=== PATIENT | male | born 1990 | race Two or more races ===

== ENCOUNTER 2017-06-17 11:33 | Outpatient (CLI) | payer OTHER | END 2017-06-17 11:40 | disposition home or self-care (01) | LOC: LAB 11:33 | DX: N39.0 Urinary tract infection, site not specified (principal); N40.0 Benign prostatic hyperplasia without lower urinary tract symptoms; E03.9 Hypothyroidism, unspecified; E78.5 Hyperlipidemia, unspecified ==

== ENCOUNTER 2023-04-04 11:26 | Emergency (ER) | payer OTHER ==
[~2023-04-04] VITALS: Ht 182.9 cm; Wt 102.1 kg
[2023-04-04 12:49] LABS: HEMOGLOBIN 14.2 g/dL (13-16.00); MEAN CELL VOLUME 92.1 fL (80.0-100.00); MEAN CORPUSCULAR HEMOGLOBIN 31.2 pg (27.00-32.0); MEAN CORPUSCULAR HGB CONC 33.9 g/dl (32.0-36.0); PLATELET COUNT 240 K/uL (150-450); RED BLOOD COUNT 4.56 M/uL (4.00-6.00); RED CELL DISTRIBUTION WIDTH 13.4 % (11.5-14.5)
[2023-04-04 13:29] LABS: CALCIUM 9.3 mg/dL (8.5-10.1); CREATININE SERUM 0.97 mg/dL (0.70-1.30); GFR 88.59; POTASSIUM 4.41 mEq/L (3.5-5.1)
[2023-04-04 14:40] LABS: PH,URINE 6.5 (5.0-8.0); URINE APPEARANCE Clear; URINE BILIRRUBIN Negative (NEGATIVE); URINE BLOOD Negative; URINE COLOR Yellow; URINE GLUCOSE Negative (NEGATIVE); URINE LEUKOCYTE Negative; URINE NITRATE Negative; URINE PROTEIN Negative (NEGATIVE); URINE UROBILINOGEN 0.2 E.U./dl
[2023-04-04 14:42] LABS: URINE BACTERIA 13.8 uL (0.0-1933); URINE RBC 2.2 uL (0.0-20.8)
[2023-04-04 14:55] LABS: URINE EPITHELIAL CELLS 0.3 uL (0.0-38.8); URINE WBC 0.7 uL (0.0-23.2)
[2023-04-04] MEDS ORDERED: ZOFRAN8 MG PO (17:41)
[2023-04-04] MEDS ORDERED: PEPCID AC20 MG PO (17:41)
== END 2023-04-04 19:49 | disposition home or self-care (01) ==
LOC: ER 11:27
PROVIDERS: Emergency Medicine
DX: K52.89 Other specified noninfective gastroenteritis and colitis (principal); R19.7 Diarrhea, unspecified